=== PATIENT | female | born 1995 | race Two or more races ===

== ENCOUNTER 2016-12-29 11:25 | Observation (INO) | payer MEDICAID ==
[2016-12-29] MEDS ORDERED: LACTATED RINGER'S 1,000 ML IV ONE (11:45)
== END 2016-12-29 14:20 | disposition home or self-care (01) | DRG 566 ==
LOC: LDRP 11:25
PROVIDERS: ADMIT Obstetrics & Gynecology; ATTEND Obstetrics & Gynecology
DX: O21.2 Late vomiting of pregnancy (principal); E86.0 Dehydration; O26.893 Other specified pregnancy related conditions, third trimester; R19.7 Diarrhea, unspecified; Z3A.36 36 weeks gestation of pregnancy
CPT/HCPCS: 59025; 81002; 96365; 96366; G0378